=== PATIENT | female | born 1960 | race American Indian/Alaskan Native ===

== ENCOUNTER 2017-05-21 05:28 | Emergency (ER) | payer BC, OTHER ==
[2017-05-21 06:06] LABS: Basophils # (Auto) 0.1 K/mm3 (0.0-0.1); Basophils % (Auto) 1.2 % (0.0-1.8); Eosinophils # (Auto) 0.1 K/mm3 (0.0-0.4); Eosinophils % (Auto) 1.2 % (0.0-4.3); Hematocrit 38.9 % (30.3-42.9); Hemoglobin 13.3 gm/dl (10.1-14.3); Lymphocytes # (Auto) 2.1 K/mm3 (1.2-5.4); Lymphocytes % (Auto) 22.5 % (13.4-35.0); Mean Corpuscular HGB Conc 34 % (30-34); Mean Corpuscular Hemoglobin 33 pg (28-32); Mean Corpuscular Volume 95 fl (79-97); Monocytes # (Auto) 0.6 K/mm3 (0.0-0.8); Monocytes % (Auto) 6.3 % (0.0-7.3); Platelet Count 379 K/mm3 (140-440); Red Blood Count 4.09 M/mm3 (3.65-5.03); Red Cell Distribution Width 15.5 % (13.2-15.2)
[2017-05-21 06:17] LABS: INR 2.83 (0.87-1.13)
[2017-05-21 06:18] LABS: Partial Thromboplastin Time 51.5 Sec. (24.2-36.6)
[2017-05-21 06:30] LABS: Alanine Aminotransferase 22 units/L (7-56); Albumin 3.6 g/dL (3.9-5); BUN/Creatinine Ratio 20; Blood Urea Nitrogen 14 mg/dL (7-17); Calcium 8.9 mg/dL (8.4-10.2); Hemolysis Index 9; Lipase 23 units/L (13-60)
[2017-05-21] MEDS ORDERED: WATER FOR INJ (PF) 10 ML ONE (06:45)
--- NOTE | 2017-05-21 06:58 | Emergency Department Report ---
HPI - General Chief Complaint: Nosebleed Time Seen by Provider: 05/21/17 06:31 - HPI HPI: Room 17 The patient is a 57-year-old female presenting with a chief complaint of epistaxis. The patient states she was awakened at 01:00 with epistaxis from the left naris. The patient states she held pressure for approximately 1 hour and the bleeding stopped. The patient says she went back to sleep and then awakened at 03:00 again with bleeding from the left naris. Patient states she is on Coumadin for history of stroke and A. fib. The patient states she last took Coumadin last night. Location: Left naris Duration: [See above] Quality: [See above] Severity: Moderate Modifying factors: [see above] Context: [see above] Mode of transportation: [not driving] ED Past Medical Hx - Past Medical History Hx Hypertension: Yes (taken off antihypertensives by primary physician several months ago) Hx CVA: Yes (2012) Additional medical history: High Cholesterol - Family History Family history: no significant - Social History Smoking Status: Current Every Day Smoker Substance Use Type: None - Medications Home Medications: Home Medications Medication Instructions Recorded Confirmed Last Taken Type Warfarin 5 mg PO 3XW 02/09/15 07/20/15 07/18/15 History Simvastatin 40 mg PO QDAY 05/06/15 07/20/15 2 Days Ago History ~05/04/15 Warfarin [Coumadin] 2.5 mg PO 2XW 05/06/15 07/20/15 05/02/15 History Amitriptyline [Elavil] 50 mg PO QHS 07/20/15 07/20/15 07/20/15 History Iron 65 mg PO DAILY 07/20/15 07/20/15 07/20/15 History Varenicline Tartrate [Chantix] 1 mg PO BID 07/20/15 07/20/15 Unknown History Amoxicillin/Potassium Clav 1 each PO BID #14 tablet 05/21/17 Unknown Rx [Augmentin 500-125 Tablet] ED Review of Systems ROS: Stated complaint: NOSEBLEED Other details as noted in HPI ENT: epistaxis Physical Exam - Physical Exam Vital Signs: Vital Signs 05/21/17 05:35 Temperature 97.1 F L Pulse Rate 107 H Blood Pressure 146/86 O2 Sat by Pulse 97 Oximetry Physical Exam: GENERAL: The patient is well-developed well-nourished female lying on stretcher holding a bloody rag to her nose appear to be in acute distress. [] HEENT: Normocephalic. Atraumatic. Extraocular motions are intact. Oropharynx is filled with bright red blood. Blood clot seen hanging in the back oropharynx but no active trickle of blood seen NECK: Supple. Trachea midline CHEST/LUNGS: There is no respiratory distress noted. HEART/CARDIOVASCULAR: Regular. There is tachycardia. There is no gallop rub or murmur. ABDOMEN: There is no abdominal distention. SKIN: There is no rash. There is no edema. There is no diaphoresis. NEURO: The patient is awake, alert, and oriented. The patient is cooperative. The patient has normal speech MUSCULOSKELETAL: There is no evidence of acute injury. ED Course Vital Signs 05/21/17 05:35 Temperature 97.1 F L Pulse Rate 107 H Blood Pressure 146/86 O2 Sat by Pulse 97 Oximetry - Reevaluation(s) Reevaluation #1: 05/21/17 07:[address] No bleeding through seen on the fresh gauze. Patient states she feels better and so the bleeding has stopped. There is no blood trickling down the back of her throat. Patient given strong warnings to return to emergency department should the bleeding returned. Patient admonished to follow -up with the ENT immediately this morning ED Medical Decision Making - Lab Data Result diagrams: 05/21/17 05:44 05/21/17 05:44 - Differential Diagnosis epistaxis Critical care attestation.: If time is entered above; I have spent that time in minutes in the direct care of this critically ill patient, excluding procedure time. ED Disposition Clinical Impression: Epistaxis Disposition: DC-01 TO HOME OR SELFCARE Is pt being admited?: No Does the pt Need Aspirin: No Condition: Stable Instructions: Epistaxis (ED) Additional Instructions: Return to the emergency department immediately should you develop worsening symptoms, fever, inability to tolerate food or liquid or any other concerns. Prescriptions: Amoxicillin/Potassium Clav [Augmentin 500-125 Tablet] 1 each PO BID #14 tablet Referrals: JENA PACHECO DO [Primary Care Provider] - 3-5 Days JODI MANCILLA MD [Staff Physician] - [facility] (Dr. Serjio-Betty ear nose and throat doctor. Please follow up with her or another ENT immediately) RIVERA PEGUERO MD [Staff Physician] - [facility] (Dr Peguero is an ear nose and throat doctor. Please follow up with him or another ENT immediately) Time of Disposition: 07:49
[2017-05-21 07:11] VITALS: BP 143/93
== END 2017-05-21 07:30 | disposition home or self-care (01) ==
LOC: ED 05:28
DX: R04.0 Epistaxis (principal); I10 Essential (primary) hypertension; E78.00 Pure hypercholesterolemia, unspecified; F17.200 Nicotine dependence, unspecified, uncomplicated; Z86.73 Personal history of transient ischemic attack (TIA), and cerebral infarction without residual deficits
CPT/HCPCS: 36415; 80053; 83690; 85025; 85610; 85730; 86850; 86900; 86901

== ENCOUNTER 2018-06-22 06:45 | Day surgery (SDC) | payer MEDICARE ==
[2018-06-22 07:37] LABS: Basophils # (Auto) 0.2 K/mm3 (0.0-0.1); Basophils % (Auto) 1.3 % (0.0-1.8); Eosinophils # (Auto) 0.1 K/mm3 (0.0-0.4); Hematocrit 38.7 % (30.3-42.9); Hemoglobin 12.8 gm/dl (10.1-14.3); Lymphocytes # (Auto) 2.6 K/mm3 (1.2-5.4); Lymphocytes % (Auto) 22.5 % (13.4-35.0); Mean Corpuscular HGB Conc 33 % (30-34); Mean Corpuscular Volume 92 fl (79-97); Monocytes # (Auto) 0.7 K/mm3 (0.0-0.8); Monocytes % (Auto) 6.2 % (0.0-7.3); Platelet Count 552 K/mm3 (140-440); Red Cell Distribution Width 15.8 % (13.2-15.2)
[2018-06-22 07:47] LABS: INR 0.92 (0.87-1.13); Partial Thromboplastin Time 20.9 Sec. (24.2-36.6)
[2018-06-22 07:50] LABS: BUN/Creatinine Ratio 17; Blood Urea Nitrogen 12 mg/dL (7-17); Calcium 8.8 mg/dL (8.4-10.2); Hemolysis Index 0
[2018-06-22] MEDS: NACL 0.9% 500 ML 500 ML IV SCH ×2 (08:11→09:09)
[2018-06-22] MEDS ORDERED: HEPARIN/NS 5000 UNIT/500ML(CATH LAB) 1,000 ML IR ONE (08:18)
[2018-06-22] MEDS ORDERED: XYLOCAINE 2% INFILTRATI ONE (08:22)
[2018-06-22] MEDS: SUBLIMAZE ONE ×2 (09:07→09:16)
[2018-06-22] MEDS: VERSED ONE ×2 (09:07→09:16)
[2018-06-22] MEDS: CALAN ONE ×3 (09:08→09:21)
[2018-06-22] MEDS: XYLOCAINE 2% INFILTRATI ONE ×2 (09:08→09:19)
[2018-06-22] MEDS: HEPARIN 10,000 UNITS/10 ML ONE ×3 (09:08→09:21)
[2018-06-22] MEDS: NITROGLYCERIN SYRINGE 3 ML ONE ×3 (09:09→09:21)
--- NOTE | 2018-06-22 10:19 | Short Stay Summary ---
Short Stay Documentation Date of service: 06/22/18 - History H&P: obtained from office - Allergies and Medications Current Medications: Allergies No Known Allergies Allergy (Verified 05/21/17 05:39) Home Medications Medication Instructions Recorded Confirmed Last Taken Type Warfarin 5 mg PO DAILY 02/09/15 06/22/18 06/17/18 History Simvastatin 40 mg PO QDAY 05/06/15 06/22/18 06/21/18 History Amitriptyline [Elavil] 50 mg PO QHS 07/20/15 06/22/18 06/21/18 History Varenicline Tartrate [Chantix] 1 mg PO BID 07/20/15 06/22/18 06/21/18 History Amlodipine Besylate/Benazepril 1 each PO QDAY 06/22/18 06/22/18 06/21/18 History [Lotrel 10-40 mg] Amlodipine Besylate/Benazepril 1 each PO DAILY 06/22/18 06/22/18 06/21/18 History [Lotrel 5-10 mg Capsule] Escitalopram Oxalate [Lexapro] 20 mg PO DAILY 06/22/18 06/22/18 06/21/18 History Metoprolol Tartrate 50 mg PO BID 06/22/18 06/22/18 06/21/18 History SUMAtriptan SUCCINATE [Imitrex] 100 mg PO DAILY 06/22/18 06/22/18 06/21/18 History Active Medications Sodium Chloride (Nacl 0.9% 500 Ml) 500 mls @ 50 mls/hr IV DIRECT MABEL Stop: 06/22/18 17:59 Last Admin: 06/22/18 09:09 Dose: 50 mls/hr Documented by: - Physical exam General appearance: no acute distress HEENT: Atraumatic Lungs: Clear to auscultation Breasts: deferred Heart: Regular rate Gastrointestinal: normal Female Genitourinary: deferred Rectal Exam: deferred Extremities: no ischemia Neurological: Normal gait - Brief post op/procedure progress note Date of procedure: 06/22/18 Pre-op diagnosis: Shortness of breath Post-op diagnosis: same Procedure: LHC, RHC and LV gram Anesthesia: MAC Findings: See report Surgeon: SURJIT CUELLAR Estimated blood loss: none Pathology: none Condition: stable - Hospital course Hospital course: Uneventful - Disposition Condition at discharge: Good Disposition: DC-01 TO HOME OR SELFCARE Short Stay Discharge Plan Activity: advance as tolerated Weight Bearing Status: Weight Bear as Tolerated Diet: low fat, low cholesterol, low salt Follow up with: JENA PACHECO [Primary Care Provider] - 7 Days
--- NOTE | 2018-06-22 10:46 | Cardiac Catherization Report ---
LEFT AND RIGHT HEART CATHETERIZATION INDICATION FOR PROCEDURE: Shortness of breath, atrial septal defect. PROCEDURES PERFORMED: 1. Selective left and right coronary angiography. 2. Left ventriculography. 3. Right heart catheterizations with hemodynamic measurement and oxygen saturation run. DESCRIPTION OF PROCEDURE: After obtaining the consent, the patient was draped using sterile technique. A 2% lidocaine was injected into the right wrist and 2% lidocaine was injected into the right AC fossa. A 6-[place] vascular sheath was inserted into the right radial artery. A 6-[place] vascular sheath was inserted into the right brachial vein through a previously inserted intravenous catheter. A 6-[place] JL3.5 catheter was used to selectively engage the left coronary artery. A 6-[place] multipurpose catheter was used to selectively engage the right coronary artery. A 6-[place] JR4 catheter was used to hand inject left ventriculogram. A 6-[place] Sciota-Maggi catheter was used to measure right-sided hemodynamics and perform oxygen saturation run. No complications occurred during the procedure. Hemostasis was achieved at the end of the procedure using manual pressure. SPECIMEN REMOVED: None. ESTIMATED BLOOD LOSS: Minimal. Total sedation administered 1 mg of IV Versed and 50 mcg of IV fentanyl. Physician/patient [id number] sedation start time is 9:14 a.m. Physician-patient [id number] sedation stop time is 9:54 a.m. Total sedation time was 40 minutes. FINDINGS: HEMODYNAMICS: 1. The mean pulmonary capillary wedge pressure is 16 mmHg. The pulmonary artery systolic pressure 45 mmHg. Pulmonary artery diastolic pressure of 40 mmHg and mean pulmonary artery pressure of 29 mmHg. 2. The right ventricular systolic pressure of 43 mmHg, the right ventricular end-diastolic pressure 14 mmHg. The mean right arterial pressure is 8 mmHg. 3. The aortic pressure was 142/70, left ventricular systolic pressure 140 mmHg. LVEDP was measured at 14 mmHg. The aortic saturation was 89%. The pulmonary artery saturation 60%. Right ventricular saturation 60%. The RA saturation 59%. The superior vena cava saturation 65%. The cardiac output by Seble was 4.92 L per minute. The cardiac index by Seble was 2.55 L per minute per meter square. The calculated Qp/Qs is 0.83. CARDIAC STRUCTURES: The left ventricle is normal in size. The left ventricular ejection fraction is estimated around 50%. CORONARY ANATOMY: 1. This is a right dominant circulation. 2. The left main is angiographically normal. 3. The LAD has mild diffuse nonobstructive luminal irregularities. 4. The left circumflex artery has mild diffuse nonobstructive luminal irregularities. 5. Right coronary artery has an anterior takeoff and has mild diffuse nonobstructive luminal irregularities. IMPRESSION: 1. Minimal nonobstructive coronary artery disease. 2. Left ventricular ejection fraction is estimated at 50% with an LVEDP measured at 14 mmHg. 3. Mild pulmonary hypertension with a transpulmonary gradient of 13 mmHg and the pulmonary vascular resistance of 2.6 Rosario units. 4. Borderline left and right-sided filling pressures. 5. Preserved cardiac output. 6. No evidence of a significant intracardiac shunt with a Qp/Qs ratio of 0.83 and no evidence of oxygen saturation step up or step down. RECOMMENDATIONS: Follow up with referring flux tube attendant. JOB# [id number] LISA/WENDY
[2018-06-22 13:44] VITALS: BP 125/80
== END 2018-06-22 13:30 | disposition home or self-care (01) ==
LOC: CATHLABREC 06:45
PROVIDERS: ATTEND Internal Medicine
DX: I25.10 Atherosclerotic heart disease of native coronary artery without angina pectoris (principal); I27.20 Pulmonary hypertension, unspecified; F17.210 Nicotine dependence, cigarettes, uncomplicated; E78.5 Hyperlipidemia, unspecified; I10 Essential (primary) hypertension; E78.00 Pure hypercholesterolemia, unspecified; Z79.899 Other long term (current) drug therapy; Z79.01 Long term (current) use of anticoagulants; Z86.73 Personal history of transient ischemic attack (TIA), and cerebral infarction without residual deficits; Z86.2 Personal history of diseases of the blood and blood-forming organs and certain disorders involving the immune mechanism; Z80.8 Family history of malignant neoplasm of other organs or systems
CPT/HCPCS: 36415; 80048; 85025; 85610; 85730; 93005; 93010; 93460; 99156; 99157; C1769; C1894; J1644; J2250; J3010; J7040; Q9967